=== PATIENT | female | born 1980 | race Caucasian/White ===

== ENCOUNTER 2016-07-15 08:34 | Emergency (ER) | payer SELFPAY ==
[~2016-07-15] VITALS: Ht 157.5 cm; Wt 71.0 kg
[2016-07-15 08:35] VITALS: BP 118/70
[2016-07-15 09:36] LABS: BLOOD UREA NITROGEN 11 mg/dL (7-18)
[2016-07-15 09:43] LABS: IS PT STATUS REG ER OR PRE ER? YES
== END 2016-07-15 10:36 | disposition home or self-care (01) ==
LOC: ED 09:29
DX: M94.0 Chondrocostal junction syndrome [Tietze] (principal); B34.9 Viral infection, unspecified
CPT/HCPCS: 36415; 71020; 80048; 82040; 84484; 85025; 93005; 99285

== ENCOUNTER 2016-12-03 17:48 | Emergency (ER) | payer OTHER ==
[~2016-12-03] VITALS: Ht 154.9 cm; Wt 71.6 kg
[2016-12-03 17:50] VITALS: BP 126/84
[2016-12-03] MEDS ORDERED: BIRTH CONTROL (18:04)
== END 2016-12-03 19:23 | disposition home or self-care (01) ==
LOC: ED 19:00
DX: S90.561A Insect bite (nonvenomous), right ankle, initial encounter (principal); L03.115 Cellulitis of right lower limb; W57.XXXA Bitten or stung by nonvenomous insect and other nonvenomous arthropods, initial encounter; Y93.89 Activity, other specified; Y92.89 Other specified places as the place of occurrence of the external cause; Y99.8 Other external cause status
CPT/HCPCS: 99284

== ENCOUNTER 2017-08-05 17:37 | Emergency (ER) | payer SELFPAY ==
[~2017-08-05] VITALS: Ht 160 cm; Wt 73.1 kg
[~2017-08-05 17:37] MED LIST: BIRTH CONTROL
[2017-08-05] MEDS ORDERED: KETOROLAC 60 MG/2 ML IM ONE (18:30)
[2017-08-05] MEDS ORDERED: KETOROLAC 30 MG/1 ML ONE (18:48)
[2017-08-05] MEDS ORDERED: CYCLOBENZAPRINE 10 MG TABLET ONE (18:50)
[2017-08-05 18:54] VITALS: BP 121/78
[2017-08-05] MEDS ORDERED: CYCLOBENZAPRINE 10 MG TABLET PO ONE (19:00)
== END 2017-08-05 18:57 | disposition home or self-care (01) ==
LOC: ED 18:51
DX: M54.2 Cervicalgia (principal); M25.512 Pain in left shoulder; M79.632 Pain in left forearm; M25.532 Pain in left wrist
CPT/HCPCS: 93005; 96372; 99283; J1885

== ENCOUNTER 2019-08-19 19:28 | Emergency (ER) | payer SELFPAY ==
[~2019-08-19] VITALS: Ht 162.6 cm; Wt 70.9 kg
[2019-08-19 19:46] VITALS: BP 145/76
--- NOTE | 2019-08-19 19:55 | NUR ---
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
--- NOTE | 2019-08-19 20:19 | NUR ---
[employer] SET UP WORKER USED. ERP AT BEDSIDE.
[2019-08-19] MEDS ORDERED: KETOROLAC 30 MG/1 ML IM ONE (20:30)
[2019-08-19] MEDS ORDERED: KETOROLAC 60 MG/2 ML ONE (20:43)
--- NOTE | 2019-08-19 21:21 | NUR ---
RECEIVED REPORT FROM MARTÍN. ASSUMING CARE AT THIS TIME.
== END 2019-08-19 21:35 | disposition home or self-care (01) ==
LOC: ED 21:32
DX: M54.12 Radiculopathy, cervical region (principal); M25.532 Pain in left wrist; R44.9 Unspecified symptoms and signs involving general sensations and perceptions
CPT/HCPCS: 29125; 72125; 73110; 96372; 99284; J1885